=== PATIENT | male | born 1960 | race Caucasian/White ===

== ENCOUNTER → 2018-07-17 07:01 | Outpatient (CLI) | payer BC, SELFPAY ==
[2018-07-17 07:47] LABS: Absolute Lymphocyte Count 1.19 X10^3/ul (0.83-4.51); Absolute Neutrophil Count 3.1 X10^3/uL (2.0-7.7); Basophil# 0.06 X10^3/uL; Basophil% 1.2 % (0-1); Eosinophil# 0.24 X10^3/uL; Eosinophils% 4.7 % (0-5); Hematocrit 42.8 % (40-54); Hemoglobin 14.1 g/dl (13.0-16.5); Lymphocyte # 1.19 X10^3/ul (4.0); Lymphocyte % 23.3 % (19-41); Mean Corp Hgb Conc 32.9 g/gl (32-36); Mean Corpuscular Hgb 29.6 pg (27.0-32.0); Mean Corpuscular Volume 89.7 fL (80-94); Mean Platelet Vol. 10.1 fl (6.2-12.0); Monocyte# 0.48 X10^3/uL; Monocyte% 9.4 % (0-10); Neutrophil # 3.13 X10^3/uL (2.7-7.7); Neutrophil % 61.2 % (47-70); Platelet Count 256 K/mm3 (150-450); RBC Distribution Width CV 13.6 % (11.6-14.6); RBC Distribution Width SD 44.2 fl (35.1-43.9); Red Blood Count 4.77 M/mm3 (4.6-6.2); White Blood Count 5.1 K/mm3 (4.4-11.0)
[2018-07-17 07:48] LABS: POSITIVE COUNT NO; POSITIVE DIFFERENTIAL NO; POSITIVE MORPHOLOGY NO
[2018-07-17 08:19] LABS: AST(SGOT) 20 U/L (15-37); Alanine Aminotransfer ALT/SGPT 39 U/L (16-61); Albumin, Serum 3.7 g/dL (3.2-5.0); Alkaline Phosphatase 57 U/L (45-117); Anion Gap 6 (5-15); BUN 19 mg/dL (7-18); BUN/Creat Ratio 21.9 RATIO (10-20); Calcium,Total 8.2 mg/dL (8.5-10.1); Chloride 107 mmol/L (98-107); Cholesterol 170 mg/dL (200); Creatinine, Serum 0.87 mg/dL (0.70-1.30); EST Glomerular Filtration Rate 96 mL/min (>60); Est Glom Filt Rate - Afr Amer 116 mL/min (>60); Globulin 3.6 g/dL (2.2-4.2); Glucose 91 mg/dL (74-106); High Density Lipoprotein 44 mg/dL; PSA,Total - Annual Screen 0.46 ng/mL (0.00-4.00); Potassium 4.3 mmol/L (3.5-5.1); Protein, Total 7.3 g/dL (6.4-8.2); Sodium Level 143 mmol/L (136-145); Thyroid Stim Hormone (TSH) 1.57 uIU/mL (0.358-3.74); Triglycerides 45 mg/dL; Very Low Density Lipoprotein 9 mg/dL (5-40)
== END ==
PROVIDERS: Family Provider Family Medicine Geriatric Medicine; PCP Family Medicine Geriatric Medicine; Referring Provider Family Medicine Geriatric Medicine; Visit Provider Family Medicine Geriatric Medicine
DX: E78.49 Other hyperlipidemia (principal); R53.83 Other fatigue; Z12.5 Encounter for screening for malignant neoplasm of prostate
CPT/HCPCS: 36415; 80053; 80061; 84153; 84443; 85025; G0103

== ENCOUNTER → 2019-08-13 06:47 | Outpatient (CLI) | payer BC, SELFPAY ==
[2019-08-13 08:11] LABS: Absolute Lymphocyte Count 1.41 X10^3/uL (0.83-4.51); Absolute Neutrophil Count 3.5 X10^3/uL (2.0-7.7); Basophil# 0.09 X10^3/uL; Basophil% 1.5 % (0-1); Eosinophil# 0.39 X10^3/uL; Eosinophils% 6.5 % (0-5); Hematocrit 45.1 % (40-54); Hemoglobin 14.5 g/dL (13.0-16.5); Lymphocyte # 1.41 X10^3/ul (4.0); Lymphocyte % 23.3 % (19-41); Mean Corp Hgb Conc 32.2 g/dL (32-36); Mean Corpuscular Hgb 29.1 pg (27.0-32.0); Mean Corpuscular Volume 90.6 fL (80-94); Mean Platelet Vol. 10.1 fl (6.2-12.0); Monocyte# 0.62 X10^3/uL; Monocyte% 10.3 % (0-10); NRBC Flagged by Analyzer 0 % (0-5); Neutrophil # 3.51 X10^3/uL (2.7-7.7); Neutrophil % 58.1 % (47-70); Platelet Count 289 K/mm3 (150-450); RBC Distribution Width CV 12.8 % (11.6-14.6); RBC Distribution Width SD 41.7 fl (35.1-43.9); Red Blood Count 4.98 M/mm3 (4.6-6.2)
[2019-08-13 08:44] LABS: ALB/GLOB Ratio 1.1 RATIO (0.9-2.4); AST(SGOT) 20 U/L (15-37); Alanine Aminotransfer ALT/SGPT 31 U/L (16-61); Alkaline Phosphatase 62 U/L (45-117); Anion Gap 4 (5-15); BUN 29 mg/dL (7-18); BUN/Creat Ratio 31.7 RATIO (10-20); Calcium,Total 8.7 mg/dL (8.5-10.1); Chloride 109 mmol/L (98-107); Cholesterol 175 mg/dL (200); Creatinine, Serum 0.92 mg/dL (0.70-1.30); EST Glomerular Filtration Rate 90 mL/min (>60); Est Glom Filt Rate - Afr Amer 109 mL/min (>60); Globulin 3.8 g/dL (2.2-4.2); Glucose 91 mg/dL (74-106); High Density Lipoprotein 43 mg/dL; Potassium 4.8 mmol/L (3.5-5.1); Protein, Total 7.8 g/dL (6.4-8.2); Sodium Level 142 mmol/L (136-145); Triglycerides 67 mg/dL; Very Low Density Lipoprotein 13 mg/dL (5-40)
== END ==
PROVIDERS: Family Provider Family Medicine; PCP Family Medicine; Referring Provider Family Medicine; Visit Provider Family Medicine
DX: Z00.00 Encounter for general adult medical examination without abnormal findings (principal)
CPT/HCPCS: 36415; 80053; 80061; 85025

== ENCOUNTER → 2020-08-25 06:56 | Outpatient (CLI) | payer BC, SELFPAY ==
[2020-08-25 07:59] LABS: Absolute Lymphocyte Count 1.44 X10^3/uL (0.83-4.51); Absolute Neutrophil Count 3.1 X10^3/uL (2.0-7.7); Basophil# 0.11 X10^3/uL; Basophil% 1.9 % (0-1); Hematocrit 46.1 % (40-54); Hemoglobin 14.7 g/dL (13.0-16.5); Lymphocyte # 1.44 X10^3/ul (4.0); Lymphocyte % 25.3 % (19-41); Mean Corp Hgb Conc 31.9 g/dL (32-36); Mean Corpuscular Hgb 28.8 pg (27.0-32.0); Mean Corpuscular Volume 90.2 fL (80-94); Mean Platelet Vol. 10.1 fl (6.2-12.0); Monocyte# 0.63 X10^3/uL; Monocyte% 11.1 % (0-10); NRBC Flagged by Analyzer 0 % (0-5); Neutrophil % 54.5 % (47-70); Platelet Count 288 K/mm3 (150-450); RBC Distribution Width CV 12.9 % (11.6-14.6); RBC Distribution Width SD 42.9 fl (35.1-43.9); Red Blood Count 5.11 M/mm3 (4.6-6.2); White Blood Count 5.7 K/mm3 (4.4-11.0)
[2020-08-25 08:09] LABS: AST(SGOT) 23 U/L (15-37); Alanine Aminotransfer ALT/SGPT 34 U/L (16-61); Alkaline Phosphatase 67 U/L (45-117); Anion Gap 4 (5-15); BUN 19 mg/dL (7-18); BUN/Creat Ratio 21.8 RATIO (10-20); Calcium,Total 8.9 mg/dL (8.5-10.1); Chloride 104 mmol/L (98-107); Cholesterol 190 mg/dL (200); Creatinine, Serum 0.87 mg/dL (0.70-1.30); EST Glomerular Filtration Rate 95 mL/min (>60); Est Glom Filt Rate - Afr Amer 115 mL/min (>60); Globulin 4.1 g/dL (2.2-4.2); Glucose 92 mg/dL (74-106); High Density Lipoprotein 50 mg/dL; PSA,Total - Annual Screen 0.63 ng/mL (0.00-4.00); Potassium 4.3 mmol/L (3.5-5.1); Protein, Total 8.1 g/dL (6.4-8.2); Sodium Level 138 mmol/L (136-145); Triglycerides 88 mg/dL; Very Low Density Lipoprotein 18 mg/dL (5-40)
== END ==
PROVIDERS: PCP Family Medicine; Referring Provider Family Medicine; Visit Provider Family Medicine
DX: Z00.00 Encounter for general adult medical examination without abnormal findings (principal)
CPT/HCPCS: 36415; 80053; 80061; 84153; 85025; G0103

== ENCOUNTER → 2021-05-20 08:49 | Outpatient (CLI) | payer OTHER, SELFPAY ==
--- NOTE | 2021-05-20 08:52 | VDLE_ITS ---
Reason For Study: Swelling, Pain RIGHT LEFT CFV is compressible, spontaneous, phasic, CFV is compressible, spontaneous, phasic, competent and demonstrates normal competent, and demonstrates normal augmentation. augmentation. FV is compressible, spontaneous, phasic, FV is compressible, spontaneous, phasic, competent and demonstrates normal competent and demonstrates normal augmentation. augmentation. POP V is compressible, spontaneous, phasic, POP V is compressible, spontaneous, phasic, competent and demonstrates normal competent and demonstrates normal augmentation. augmentation. T/P Trunk is compressible. T/P Trunk is compressible. PTV is compressible. PTV is compressible. RT PerV is compressible. LT PerV is compressible. SFJ is competent and measures 0.51 x 0.53 cm. SFJ is competent and measures 0.51 x 0.56 cm. GSV proximal thigh measures 0.44 x 0.44 cm. GSV proximal thigh measures 0.23 x 0.21 cm. GSV at knee measures 0.24 x 0.26 cm. GSV at knee measures 0.28 x 0.26 cm. GSV INCOMPETENT throughout for greater than GSV is competent throughout. 0.5 seconds. SSV at junction is INCOMPETENT for greater ASV at knee is INCOMPETENT for greater than than 0.5 seconds and measures 0.53 x 0.58 cm. 0.5 seconds and measures 0.29 x 0.28 cm. ASV mid calf is INCOMPETENT for greater than 0.5 seconds and measures 0.28 x 0.26 cm. SSV at junction is competent and measures 0.32 x 0.34 cm. Procedure This is a venous duplex using B-mode, color flow and spectral Doppler. Exam performed in department. VL/Venous Duplex US - Elvis Extrem Interpretation Summary Bilateral no DVT. Right GSV measuring 2.6, 4.4, and 5.3 mm with reflux througho ut. ASV with reflux from the knee to the calf. Left LSV junction reflux measuring 5.8 mm. Ordering Physician: Jim Pires Referring Physician: Radha Valderrama Performed By: Vicki Tapia RVT
== END ==
PROVIDERS: PCP Family Medicine; Referring Provider Surgery Vascular Surgery; Visit Provider Surgery Vascular Surgery
DX: M79.89 Other specified soft tissue disorders (principal); M79.604 Pain in right leg; G62.9 Polyneuropathy, unspecified; I83.891 Varicose veins of right lower extremity with other complications
CPT/HCPCS: 93970

== ENCOUNTER 2022-09-15 17:00 | Outpatient (RCR) | payer BC, SELFPAY ==
--- NOTE | 2022-08-04 18:05 | HP.PTEVAL_ITS ---
Patient's Visit Information CAROL ERICKSON is a 61 year old M referred to Physical Therapy by KASSANDRA GORDON with a diagnosis of LUMBAR STENOSIS WITH NEUROGENIC CLAUDICATION. Date of Evaluation: 08/04/22 Physical Therapist: Zaynab Heredia, PT, Cert MDT - Visit Plan Frequency: 2-3x /Week Duration: 4-6 Weeks Plan: AQUATIC THERAPY FOR DECOMPRESSION, RIGHT LE STRENGTHENING INCLUDING RIGHT ANKLE. POSTURE CORRECTION/STRENGTHENING, INSTRUCTION IN APPROPRIATE BODY MECHANICS AND ACTIVITY MODIFICATIONS. DLS STARTING WITH A NEUTRAL SPINE PROGRESSING ROM TOLERATED. [place] LE ROM, STRETCHING AND STRENGTHENING. HEP INSTRUCTION. 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 LIFTING TOO. ON FEET A LOT. GOING TO RETIRE IN NOVEMBER 2022. Present symptoms: LOW BACK PAIN. RIGHT LE NUMBNESS AND TINGLING TO THE TOES. DENIES LLE SX'S. INTERMITTENT TRIPPING OVER RIGHT TOES. Present since: COUPLE YEARS AGO. Pain Scale: WORSE 5/10, LEAST 1/10. Currently: 09/16. Is it getting better, worse or staying the same: UNCHANGING. Commenced as a result of: NO APPARENT REASON. WOKE UP WITH IT ONE MORNING. Symptoms at onset: R FOOT WAS ASLEEP. Worse: RISING FROM SITTING, INITIATING GAIT, GETTING UP IN THE MORING. Better: WALKING, GABAPENTIN. Disturbed sleep: YES. Previous history/Previous treatment: ORTHO FOOT DOCTOR AT [facility] A FEW MONTHS AGO - SENT HIM FOR NCT AND THEN SENT TO A NEUROLOGIST - HE SENT HIM TO A BACK SURGEON DR. GORDON. DR. GORDON GAVE HIM A PT CONSULT. DR. GORDON IS NOT RECOMMENDING BACK SURGERY AT THIS TIME. HAS ALSO BEEN REFERRED TO [facility] IN [place] FOR AN INJECTION. PATIENT IS ALSO IN THE PROCESS OF GETTING AN INVERSION TABLE AT THE RECOMMENDATION OF DR. GORDON. Treatment this episode: GABAPENTIN. Coughing/sneezing/straining: NEGATIVE. Gait: NORMAL EXCEPT FIRST FEW STEPS AFTER SITTING OR IN THE MORNING. Bowel or Bladder Dysfunction: NO. Accidents: NO. Unexplained weight loss: NO. Imaging: LUMBAR MRI A COUPLE WEEKS AGO AT [facility] - MRI SHOWED SEVERE ARTHRITIS PINCHING A NERVE PER PATIENT REPORT. PMH/Recent major surgery: UNREMARKABLE. - Objective Sitting/Standing Posture: REDUCED LUMBAR LORDOSIS. NO RELEVENT LATERAL SHIFT. Active Correction of posture: WORSE. Other Observations: INDEP TRANSFER SIT TO STAND WITHOUT UE ASSIST. INDEP GAIT INTO PT WITHOUT ANY ASSISTIVE DEVICES WITH MILD LIMP ON RIGHT LE. MILD RIGHT HIP HIKING BUT ABLE TO HEEL STRIKE AND TOE OFF ON THE RIGHT. Sensory deficit: [place] LE LIGHT TOUCH SENSATION GROSSLY INTACT AND SYMMETRICAL EXCEPT RIGHT FOOT WHICH IS NUMB COMPARED TO LEFT. ROM deficit: TIGHT [place] HS'S, GASTROC SOLEUS COMPLEX'S AND L ANKLE INVERTERS. Motor deficit: RIGHT EHL AND EVERTER WEAKNESS 2/5. RIGHT HIP 4-/5, RIGHT KNEE 4/5. LLE 5/5. Reflexes: [place] QUAD AND L ACHILLES 2/3. R ACHILLES ABSENT. Dural Signs: NEGATIVE [place] LE'S. Lumbar mvmt loss: flex - MIN. ext - JUAN. R SG - MOD. L SG - MOD. INCREASED LBP WITH LUMBAR ROM TESTING ALL PLANES. PATIENT DENIES R LE SX'S WITH LUMBAR ROM TESTING. Core strength: FAIR. Palpation: NO ACUTE LUMBAR TENDERNESS WITH PALPATION. TREATMENT: NEUROMUSCULAR REEDUCATION - RETRAINING OF MVMT AND POSTURE FOR SITTING, LYING AND STANDING ACTIVITIES. - Balance/Special Test Scores Oswestry Low Back Score: 0 - Goals Goal 1:: DECREASE C/O BACK AND RIGHT LE SX'S. Goal Time Frame: 4-6 Weeks Goal 2:: IMPROVE RISING FROM SITTING, WALKING, ADL AND WORK FUNCTION Goal Time Frame: 4-6 Weeks Goal 3:: INSTRUCT IN PROPHYLAXIS Goal Time Frame: 4-6 Weeks - Anticipated Interventions Patient/Client Instruction: Educate patient on: Condition, Plan of Care, Risk Factors For the Purpose of:: To improve self management Therapeutic Exercise to Include: Strength training, Body mechanics, Postural training, Flexibilty training, Gait and locomotor training, Neuromotor development, Dynamic Lumbar Stabilization For the Purpose of:: To decrease pain, To improve muscle performance and motor function, To increase tolerance to activity/condition/position, To improve ability of physical actions for home/community/work/leisure, To improve gait and locomotor functions Thank you for the opportunity to evaluate your patient. For Medicare and Medicare HMO plans, please review the plan of care and approve it. It will need to be FAXED BACK to us at [phone] for Medicare purposes. For Medicare only, by signing this I certify the plan of care. Please let me know if there are questions or concerns regarding this plan of care. Physician Signature: Date:
--- NOTE | 2022-09-15 18:22 | HP.PTREVAL ---
KASSANDRA GORDON, It has been my pleasure to treat CAROL ERICKSON over the last 10 visits for LUMBAR STENOSIS WITH NEUROGENIC CLAUDICATION. Please see the progress note below for an update on the physical therapy plan of care! Subjective: PATIENT REPORTS HE IS SCHEDULED TO GET AN INJECTION TOMORROW. PATIENT REPORTS THE PAIN IN FOOT IS A LITTLE BETTER AND THE NUMBNESS IN R FOOT IS BETTER (NOT GONE) BUT GOING AWAY. LBP IS NO BETTER AND NO WORSE. REPORTS COMPLIANCE WITH HEP. DOING INVERSION TABLE. PATIENT REPORTS HE HAD TO DO A LOT OF PHYSICAL WORK CUTTING A TREE YESTERDAY AND TODAY HE IS NO BETTER AND NO WORSE. PATIENT REQUESTING TO HOLD PT FOR NOW UNTIL HE SEE'S HOW THE SHOT GOES. PLANS TO CONTINUE HEP IN THE MEAN TIME. Objective/Function: PATIENT WAS SEEN TODAY FOR RE-ASSESSMENT OF PROGRESS TOWARD THE SET PT GOALS AND THE NEED FOR FURTHER PHYSICAL THERAPY VS READINESS FOR DISCHARGE. PATIENT APPEARS TO BE A GOOD CANDIDATE TO CONTINUE PT BASED ON PROGRESS MADE AND ROOM FOR FURTHER IMPROVEMENT. HE WANTS TO HOLD PT FOR NOW UNTIL HE SEES HOW HE DOES WITH HIS INJECTION. WILL HOLD CHART. UPON EXAM TODAY THERE IS NO SIGNIFICANT CHANGE IN PATIENTS LUMBAR ROM BUT THERE IS IMPROVEMENT IN R LE STRENGTH FOLLOWS: RIGHT EHL AND EVERTER WEAKNESS 3-/5. RIGHT HIP 4/5, RIGHT KNEE 5/5. Plan Plan: HOLD PT. PATIENT TO CALL AFTER INJECTION IF FURTHER PT WANTED/ORDERED AND IF SO WILL NEED RE-CHECK. AQUATIC THERAPY FOR DECOMPRESSION, RIGHT LE STRENGTHENING INCLUDING RIGHT ANKLE. POSTURE CORRECTION/STRENGTHENING, INSTRUCTION IN APPROPRIATE BODY MECHANICS AND ACTIVITY MODIFICATIONS. DLS STARTING WITH A NEUTRAL SPINE PROGRESSING ROM TOLERATED. [place] LE ROM, STRETCHING AND STRENGTHENING. HEP INSTRUCTION. Balance/Gait/Functional tests - Balance/Special Test Scores Oswestry Low Back Score: 3 Goals Goal 1:: DECREASE C/O BACK AND RIGHT LE SX'S. Goal Time Frame: 4-6 Weeks Goal Progress: Progressing Goal 2:: IMPROVE RISING FROM SITTING, WALKING, ADL AND WORK FUNCTION Goal Time Frame: 4-6 Weeks Goal 3:: INSTRUCT IN PROPHYLAXIS Goal Time Frame: 4-6 Weeks Goal Progress: Progressing Anticipated Interventions Patient/Client Instruction: Educate patient on: Condition, Plan of Care, Risk Factors For the Purpose of:: To improve self management Therapeutic Exercise to Include: Strength training, Body mechanics, Postural training, Flexibilty training, Gait and locomotor training, Neuromotor development, Dynamic Lumbar Stabilization For the Purpose of:: To decrease pain, To improve muscle performance and motor function, To increase tolerance to activity/condition/position, To improve ability of physical actions for home/community/work/leisure, To improve gait and locomotor functions Please do not hesitate to contact me at [phone] by phone or if you have questions or concerns regarding this new plan of care! Sincerely, Zaynab Heredia, PT, Cert MDT
--- NOTE | 2022-12-04 11:13 | HP.PT.NRP ---
CAROL ERICKSON was seen in my office for initial evaluation on 08/04/22. The following Plan of Care was established for this patient: Initial Frequency: 2-3x /Week Initial Duration: 4-6 Weeks Patient/Client Instruction: Educate patient on: Condition, Plan of Care, Risk Factors For the Purpose of:: To improve self management Therapeutic Exercise to Include: Strength training, Body mechanics, Postural training, Flexibilty training, Gait and locomotor training, Neuromotor development, Dynamic Lumbar Stabilization For the Purpose of:: To decrease pain, To improve muscle performance and motor function, To increase tolerance to activity/condition/position, To improve ability of physical actions for home/community/work/leisure, To improve gait and locomotor functions This patient was last seen in our office 09/15/22. Pertinent comments regarding their Physical therapy will appear below: This patient has not returned to Physical Therapy and is appropriate to return to MD for further follow-up as needed. At this point I will be discontinuing this patient from physical therapy. I would be happy to see this patient again in the future if found appropriate by the physician. Thank you! Zaynab Heredia, PT, Cert MDT Balance/Gait/Functional tests - Balance/Special Test Scores Oswestry Low Back Score: 3
== END 2022-09-15 19:00 | disposition home or self-care (01) ==
LOC: PT 17:00
PROVIDERS: PCP Family Medicine
DX: M48.062 Spinal stenosis, lumbar region with neurogenic claudication (principal)
CPT/HCPCS: 97112; 97113; 97162; 97164

== ENCOUNTER → 2023-09-18 | Outpatient (CLI) | payer BC, SELFPAY ==
--- OUTSIDE RECORDS SUMMARY | 2023-09-18 06:57 | XMS RPT_ITS | CCD ---
Author Name Unknown Address [address] [place] [address] Organization [facility] Care Team Providers Care Tool Repair Technician Name Role Phone KYLE MONTELONGO Primary Care Unavailable DARIAN LAMAS~[phone], DARIAN ROBLES Attending Unavailable KYLE MONTELONGO MD Primary Care Unavailable DARIAN LAMAS~[phone], DARIAN ROBLES Admitting Unavailable KYLE MONTELONGO MD Primary Care Unavailable DARIAN LAMAS~[phone], DARIAN ROBLES Admitting Unavailable DARIAN LAMAS~[phone], DARIAN ROBLES Attending Unavailable KYLE MONTELONGO MD Primary Care Unavailable MARGARET FARMER MD Admitting Unavailable MARGARET FARMER MD Attending Unavailable KYLE MONTELONGO MD Primary Care Unavailable MARGARET FARMER MD Admitting Unavailable MARGARET FARMER MD Attending Unavailable KYLE MONTELONGO MD Primary Care Unavailable MARGARET FARMER MD Admitting Unavailable MARGARET FARMER MD Attending Unavailable DARIAN LAMAS~[phone], DARIAN ROBLES Attending Unavailable KYLE MONTELONGO MD Primary Care Unavailable DARIAN LAMAS~[phone], DARIAN ROBLES Admitting Unavailable Allergies Allergy Classification Reported Allergen(s) Allergy Type Date of Onset Reaction(s) Facility (1 source) Amoxicillin Drug Allergy 07-12-2023 Rash [facility] (1 source) Naproxen Drug Allergy 06-03-2016 Anaphylaxis, Unknown [facility] Medications Current Medications Medication Drug Class(es) Dates Sig (Normalized) Sig (Original) predniSONE 10 mg oral tablet (1 source) Start: 07-12-2023 End: 07-24-2023 predniSONE (DELTASONE) 10 mg tablet Indications: Rash Take 6 tabs for 3 days, then 4 tabs for 3 days, then 2 tabs for 3 days then 1 tab for 3 days with food. 39 tablet 0 07/12/2023 07/24/2023 Active Completed/Discontinued Medications Medication Drug Class(es) Dates Sig (Normalized) Sig (Original) [id number] 0.3 ml EPINEPHrine 1 mg/ml auto-injector (1 source) alpha-Adrenergic Agonist, beta-Adrenergic Agonist, Catecholamine Start: 11-22-2014 EPINEPHrine (EPIPEN) 0.3 mg/0.3 mL auto-injector Inject intramuscularly. 0 11/22/2014 Active Problems Active Problems Problem Classification Problem Date Documented Date Episodic/Chronic Other aftercare (1 source) [facility] (current) use of non-steroidal anti-inflammatories (NSAID); Translations: [DIVERSITY SPECIALIST USE NSAID] Onset: 07-21-2023 Episodic Other aftercare (1 source) Other prison (current) drug therapy; Translations: [OTH DIVERSITY SPECIALIST CURRENT DRUG THERAPY] Onset: 07-21-2023 Episodic Other skin disorders (1 source) Eruption; Translations: [Rash and other nonspecific skin eruption] 07-12-2023 Episodic Spondylosis; intervertebral disc disorders; other back problems (3 sources) Other intervertebral disc degeneration, lumbar region; Translations: [Spondylosis without myelopathy or radiculopathy, lumbar region] Onset: 07-21-2023 Chronic Spondylosis; intervertebral disc disorders; other back problems (4 sources) Radiculopathy, lumbosacral region; Translations: [Spinal stenosis, lumbar region with neurogenic claudication] Onset: 09-21-2022 Episodic Unclassified (1 source) LOW BACK PAIN, UNSPECIFIED; Translations: [LOW BACK PAIN, UNSPECIFIED] Onset: 07-21-2023 Past or Other Problems Problem Classification Problem Date Documented Da te Episodic/Chronic Residual codes; unclassified (1 source) Pain, unspecified; Translations: [PAIN UNSPECIFIED] Onset: 10-16-2022 Episodic Results Test Name Value Interpretation Reference Range Facil ity Vital Signs Date Time Vital Sign Value Performing Clinician Faci lity 07-12-2023 08:17-0500 Body temperature 98.1 [degF] David Santiago APRN.[employer]ER Work Phone: [facility] 07-12-2023 08:17-0500 Body weight 74.84 kg David Santiago APRN.[employer]ER Work Phone: [facility] 07-12-2023 08:17-0500 Diastolic blood pressure 88 mm[Hg] David Santiago APRN.[employer]ER Work Phone: [facility] 07-12-2023 08:17-0500 Heart rate 88 /min David Santiago ROLLING MILL OPERATOR HELPER.FINNISH RUBBER Work Phone: [facility] 07-12-2023 08:17-0500 Respiratory rate 18 /min David Santiago ROLLING MILL OPERATOR HELPER.FINNISH RUBBER Work Phone: [facility] 07-12-2023 08:17-0500 SaO2% (BldA) [Mass fraction] 97 % David Santiago APRN.FIN[employer]ISH RUBBER Work Phone: [facility] 07-12-2023 08:17-0500 Systolic blood pressure 138 mm[Hg] David Santiago ROLLING MILL OPERATOR HELPER.FINNISH RUBBER Work Phone: [facility] Encounters Encounter Date Encounter Type Care Provider Facility Start: 07-12-2023 End: 07-12-2023 ambulatory KYLE MONTELONGO Facility:[facility] Start: 07-12-2023 End: 07-12-2023 Patient encounter procedure David Santiago APRN.FINNISH RUBBER Work Phone: [facility] Plan of Treatment Date Care Activity Detail Author Start: 05-08-2023 Influenza vaccination Influenza Vacc ine (#1) [facility] Start: 09-07-2022 Depression Assessment Depression Ass essment [facility] Start: 2019 RSV Vaccine (1 - 1-d ose 60+ series) RSV Vaccine (1 - 1-dose 60+ series) [facility] Start: 07-19-2018 Shingrix Vaccine (2 of 2) Shingrix V accine (2 of 2) [facility] Start: 11-10-2014 Prostate Cancer Scre ening Discussion Prostate Cancer Screening Discussion [facility] Start: 11-10-2004 Cologuard (FIT-DNA) Cologuard (FIT-D NA) [facility] Start: 11-10-2004 Colonoscopy Colonoscopy [facility] Start: 11-10-2004 Colorectal Cancer Screening Colorectal Cancer Screening [facility] Start: 11-10-[address] Colonography [facility] Start: 11-10-2004 Diabetes Screening Diabetes Screenin g [facility] Start: 11-10-2004 Fecal Occult Blood Fecal Occult Bloo d [facility] Start: 11-10-2004 Sigmoidoscopy Sigmoidoscopy [facility] Start: 11-10-1994 Lipid 1996 panel - S wanda or Plasma Lipid Screening [facility] Start: 11-10-1978 Urine microalbumin profile DTa P,Tdap,Td Vaccine (1 - Tdap) [facility] Start: 11-10-1977 Hepatitis C Screening Hepatitis C Sc reening [facility] Start: 11-10-1977 HIV Screening HIV Screening [facility] Payers Date Payer Category Payer Unknown [employer]NDIE [employer]HOU [employer]ST[employer] PPO [id number] 2023-Present [phone] [address] [place] [address] PPO [id number] 1960 Unknown [id number] 1959 Unknown [id number] 1959 Unknown [id number] 1959 Unknown [id number] 1959 Unknown [id number] 1959 Unknown [id number] 1959 Unknown [id number] 1960 Unknown [id number] Social History Date Type Detail Facility Start: 07-12-2023 [facility] [place] Never smoked tobacco [facility] Start: 07-12-2023 Tobacco use and exposure Smoke less tobacco non-user [facility] Start: 07-12-2023 History of Social function [facility] Start: 07-12-2023 Tobacco use panel [facility] Start: 1960 Sex Assigned At Not on file [facility] Progress note 07-12-2023 Note Date & Type Note Facility 07-12-2023 Note HNO ID: [id number] Author: David Santiago APRN.FINNISH RUBBER Service: ? Author Type: Nurse Practitioner Type: Progress Notes Filed: 07/12/2023 9:16 AM Note Text: Subjective HPI HPI Efrain Redmond is a 62 year old male who presents today for CC of itchy rash. This started 1 day ago. Has tried otc medication for relief. Symptoms are worsened by nothing. Risk factors recently on amoxicillin for dental work and has been working outside/leaves recently. Hx of PI rash. .Patient presents with: Rash: Medication reaction, amox x last night No past medical history on file. No past surgical history on file. ALLERGIES Naproxen and Amoxicillin MEDICATIONS EPINEPHrine (EPIPEN) 0.3 mg/0.3 mL auto-injector Inject intramuscularly. loratadine (CLARITIN) 10 mg tablet Take 1 tablet by mouth once daily. gabapentin (NEURONTIN) 100 mg capsule 1 capsule. ibuprofen (MOTRIN) 200 mg tablet 1 tablet with food or milk as needed Orally Three times a day predniSONE (DELTASONE) 10 mg tablet Take 6 tabs for 3 days, then 4 tabs for 3 days, then 2 tabs for 3 days then 1 tab for 3 days with food. triamcinolone acetonide (KENALOG) 0.1 % cream Apply 1 application to affected area three times a day for 10 days. Apply sparingly to area for rash/itching. No family history on file. Social History Tobacco Use Smoking status: Never Smokeless tobacco: Never Review of Systems Constitutional: Negative for fever. Respiratory: Negative for cough and shortness of breath. Cardiovascular: Negative for chest pain. Skin: Positive for itching and rash. Objective Blood pressure 138/88, pulse 88, temperature 36.7 ?C (98.1 ?F), resp. rate 18, weight 74.8 kg (165 lb), SpO2 97 %. Physical Exam Constitutional: General: He is not in acute distress. Appearance: He is not toxic-appearing or diaphoretic. HENT: Head: Normocephalic and atraumatic. Pulmonary: Effort: Pulmonary effort is normal. No accessory muscle usage or respiratory distress. Skin: Neurological: Mental Status: He is alert and oriented to person, place, and time. ASSESSMENT/PLAN: 1. Rash - ICD9: 782.1, ICD10: R21 Unclear etiology Recently finished a round of amoxicillin, concerns this is related Presentation more likely plant dermatitis Is to f/u with pcp and have testing for pcn allergy - PREDNISONE 10 MG TABLET - TRIAMCINOLONE ACETONIDE 0.1 % TOPICAL CREAM David Santiago APRN.[facility] History of Present illness Narrative 07-12-2023 David Santiago APRN.FINNISH RUBBER - 07/12/2023 9:09 AM EST Note Date & Type Note Facility 07-12-2023 History of Presen t illness Narrative Images from the original note were not included. Subjective HPI HPI Efrain Redmond is a 62 year old male who presents today for CC of itchy rash. This started 1 day ago. Has tried otc medication for relief. Symptoms are worsened by nothing. Risk factors recently on amoxicillin for dental work and has been working outside/leaves recently. Hx of PI rash. .Patient presents with: Rash: Medication reaction, amox x last night No past medical history on file. No past surgical history on file. ALLERGIES Naproxen and Amoxicillin MEDICATIONS EPINEPHrine (EPIPEN) 0.3 mg/0.3 mL auto-injector Inject intramuscularly. loratadine (CLARITIN) 10 mg tablet Take 1 tablet by mouth once daily. gabapentin (NEURONTIN) 100 mg capsule 1 capsule. ibuprofen (MOTRIN) 200 mg tablet 1 tablet with food or milk as needed Orally Three times a day predniSONE (DELTASONE) 10 mg tablet Take 6 tabs for 3 days, then 4 tabs for 3 days, then 2 tabs for 3 days then 1 tab for 3 days with food. triamcinolone acetonide (KENALOG) 0.1 % cream Apply 1 application to affected area three times a day for 10 days. Apply sparingly to area for rash/itching. No family history on file. Social History Tobacco Use Smoking status: Never Smokeless tobacco: Never Review of Systems Constitutional: Negative for fever. Respiratory: Negative for cough and shortness of breath. Cardiovascular: Negative for chest pain. Skin: Positive for itching and rash. Objective Blood pressure 138/88, pulse 88, temperature 36.7 C (98.1 F), resp. rate 18, weight 74.8 kg (165 lb), SpO2 97 %. Physical Exam Constitutional: General: He is not in acute distress. Appearance: He is not toxic-appearing or diaphoretic. HENT: Head: Normocephalic and atraumatic. Pulmonary: Effort: Pulmonary effort is normal. No accessory muscle usage or respiratory distress. Skin: Neurological: Mental Status: He is alert and oriented to person, place, and time. ASSESSMENT/PLAN: 1. Rash - ICD9: 782.1, ICD10: R21 Unclear etiology Recently finished a round of amoxicillin, concerns this is related Presentation more likely plant dermatitis Is to f/u with pcp and have testing for pcn allergy - PREDNISONE 10 MG TABLET - TRIAMCINOLONE ACETONIDE 0.1 % TOPICAL CREAM David Santiago APRN.FINNISH RUBBER documented in this encounter [facility] Evaluation note Note Date & Type Note Facility documented in this encounter [facility] Summary Purpose Family History No Family History Records FoundNo Family History Records Found Advance Directives No Advanced Directives Records FoundNo Advanced Directives Records Found Additional Source Comments (unrecognized sect ion and content) No Status Records FoundNo Status Records Found INFORMATION SOURCE (unrecogn ized section and content) DATE CREATED AUTHOR AUTHOR'S ORGANIZ ATION 07/23/[address] [facility] Source Comments (unrecognize d section and content) In the event this informatio n is protected by the Federal Confidentiality of Alcohol and Drug Abuse Patient Records regulations: The Federal rules restrict any use of the information to criminally investigate or prosecute any alcohol or drug abuse patient.[facility] Reason for Visit (unrecogniz ed section and content) Care Teams (unrecognized sec tion and content) FOR RECORDS PERTAINING TO PATIENTS WHO ARE OR HAVE BEEN ENROLLED IN A CHEMICAL DEPENDENCY/SUBSTANCEABUSE PROGRAM, SOME INFORMATION MAY BE OMITTED. This clinical summary was aggregated from multiple sources. Caution should be exercised in using it in the provision of clinical care. This summary normalizes information from multiple sources, and as a consequence, information in this document may materially change the coding, format and clinical context of patient data. In addition, data may be omitted in some cases. CLINICAL DECISIONS SHOULD BE BASED ON THE PRIMARY CLINICAL RECORDS. [employer] [facility]. provides no warranty or guarantee of the accuracy or completeness of information in this document.
[2023-09-18 07:23] LABS: Absolute Lymphocyte Count 1.88 X10^3/uL (0.83-4.51); Absolute Neutrophil Count 3.5 X10^3/uL (2.0-7.7); Basophil# 0.13 X10^3/uL; Basophil% 1.9 % (0-1); Eosinophil# 0.49 X10^3/uL; Eosinophils% 7.3 % (0-5); Hemoglobin 14.5 g/dL (13.0-16.5); Lymphocyte # 1.88 X10^3/ul (0.83-4.51); Mean Corp Hgb Conc 31.5 g/dL (32-36); Mean Corpuscular Hgb 27.9 pg (27.0-32.0); Mean Corpuscular Volume 88.6 fL (80-94); Mean Platelet Vol. 9.6 fl (6.2-12.0); Monocyte# 0.67 X10^3/uL; NRBC Flagged by Analyzer 0 % (0-5); Neutrophil # 3.52 X10^3/uL (2.7-7.7); Neutrophil % 52.4 % (47-70); Platelet Count 325 K/mm3 (150-450); RBC Distribution Width CV 13.8 % (11.6-14.6); RBC Distribution Width SD 44.6 fl (35.1-43.9); Red Blood Count 5.19 M/mm3 (4.6-6.2); White Blood Count 6.7 K/mm3 (4.4-11.0)
[2023-09-18 07:54] LABS: AST(SGOT) 19 U/L (15-37); Alanine Aminotransfer ALT/SGPT 33 U/L (16-61); Albumin, Serum 3.9 g/dL (3.2-5.0); Alkaline Phosphatase 78 U/L (45-117); Anion Gap 5 (5-15); BUN 24 mg/dL (7-18); BUN/Creat Ratio 22.9 RATIO (10-20); Calcium,Total 9.4 mg/dL (8.5-10.1); Chloride 106 mmol/L (98-107); Cholesterol 207 mg/dL (200); Creatinine, Serum 1.05 mg/dL (0.70-1.30); EST Glomerular Filtration Rate 76 mL/min (>60); Est Glom Filt Rate - Afr Amer 92 mL/min (>60); Globulin 4.1 g/dL (2.2-4.2); Glucose 100 mg/dL (74-106); High Density Lipoprotein 40 mg/dL; PSA,Total - Annual Screen 0.64 ng/mL (0.00-4.00); Potassium 4.2 mmol/L (3.5-5.1); Sodium Level 140 mmol/L (136-145); Triglycerides 89 mg/dL; Very Low Density Lipoprotein 18 mg/dL (5-40)
== END | disposition home or self-care (01) ==
LOC: LAB 06:55
PROVIDERS: PCP Family Medicine; Referring Provider Family Medicine; Visit Provider Family Medicine
DX: Z00.00 Encounter for general adult medical examination without abnormal findings (principal)
CPT/HCPCS: 36415; 80053; 80061; 84153; 85025; G0103

== ENCOUNTER → 2024-11-30 | Outpatient (CLI) | payer MEDICARE, SELFPAY ==
[2024-11-30 07:35] LABS: Absolute Lymphocyte Count 1.52 X10^3/uL (0.83-4.51); Absolute Neutrophil Count 3.1 X10^3/uL (2.0-7.7); Basophil# 0.09 X10^3/uL; Basophil% 1.5 % (0-1); Eosinophil# 0.53 X10^3/uL; Hematocrit 47.2 % (40-54); Hemoglobin 15.7 g/dL (13.0-16.5); Lymphocyte # 1.52 X10^3/ul (0.83-4.51); Lymphocyte % 25.7 % (19-41); Mean Corp Hgb Conc 33.3 g/dL (32-36); Mean Corpuscular Hgb 29.6 pg (27.0-32.0); Mean Corpuscular Volume 88.9 fL (80-94); Monocyte# 0.64 X10^3/uL; Monocyte% 10.8 % (0-10); NRBC Flagged by Analyzer 0 % (0-5); Neutrophil # 3.13 X10^3/uL (2.7-7.7); Neutrophil % 52.8 % (47-70); Platelet Count 243 K/mm3 (150-450); RBC Distribution Width CV 13.5 % (11.6-14.6); RBC Distribution Width SD 44.2 fl (35.1-43.9); Red Blood Count 5.31 M/mm3 (4.6-6.2); White Blood Count 5.9 K/mm3 (4.4-11.0)
[2024-11-30 07:57] LABS: ALB/GLOB Ratio 1.4 RATIO (0.9-2.4); AST(SGOT) 26 U/L (<=37); Alanine Aminotransfer ALT/SGPT 23 U/L (<=46); Albumin, Serum 4.7 g/dL (3.4-4.8); Alkaline Phosphatase 79 U/L (40-129); Anion Gap 12 (5-15); BUN 25 mg/dL (4-19); Calcium,Total 9.7 mg/dL (7.6-11.0); Carbon Dioxide 24.3 mmol/L (21.0-32.0); Chloride 103 mmol/L (98-108); Cholesterol 224 mg/dL (<=200); Creatinine, Serum 1.07 mg/dL (0.70-1.20); EST Glomerular Filtration Rate 77 (>60); Globulin 3.4 g/dL (2.2-4.2); Glucose 100 mg/dL (70-99); High Density Lipoprotein 45 mg/dL; Low Density Lipoprotein Calc. 153 mg/dL; Potassium 4.4 mmol/L (3.3-5.1); Protein, Total 8.1 g/dL (5.9-8.4); Sodium Level 139 mmol/L (133-145); Triglycerides 132 mg/dL; Very Low Density Lipoprotein 26 mg/dL (5-40)
== END | disposition home or self-care (01) ==
LOC: LAB 07:02
PROVIDERS: PCP Family Medicine; Referring Provider Family Medicine; Visit Provider Family Medicine
DX: Z00.00 Encounter for general adult medical examination without abnormal findings (principal); M54.16 Radiculopathy, lumbar region; E78.5 Hyperlipidemia, unspecified; R53.83 Other fatigue
CPT/HCPCS: 36415; 80053; 80061; 85025